=== PATIENT | female | born 1935 | race Caucasian/White ===

== ENCOUNTER → 2024-10-04 08:01 | Outpatient (REF) | payer MEDICARE, OTHER, SELFPAY | LOC: WOUND 08:01 | PROVIDERS: ATTENDING PHYSICIAN Surgery; FAMILY PHYSICIAN Family Medicine | DX: L97.312 Non-pressure chronic ulcer of right ankle with fat layer exposed (principal); C44.712 Basal cell carcinoma of skin of right lower limb, including hip; I87.2 Venous insufficiency (chronic) (peripheral) | CPT/HCPCS: 11042; 99204 ==

== ENCOUNTER → 2024-10-05 08:04 | Outpatient (REF) | payer MEDICARE, OTHER, SELFPAY | LOC: RAD 08:04 | PROVIDERS: ATTENDING PHYSICIAN Surgery; FAMILY PHYSICIAN Family Medicine | DX: I87.2 Venous insufficiency (chronic) (peripheral) (principal); L97.312 Non-pressure chronic ulcer of right ankle with fat layer exposed | CPT/HCPCS: 93971 ==

== ENCOUNTER → 2024-10-12 13:27 | Outpatient (REF) | payer MEDICARE, OTHER, SELFPAY | LOC: WOUND 13:27 | PROVIDERS: ATTENDING PHYSICIAN Surgery; FAMILY PHYSICIAN Family Medicine | DX: L97.312 Non-pressure chronic ulcer of right ankle with fat layer exposed (principal); C44.712 Basal cell carcinoma of skin of right lower limb, including hip; I87.2 Venous insufficiency (chronic) (peripheral) | CPT/HCPCS: 11042 ==

== ENCOUNTER → 2024-10-19 14:54 | Outpatient (REF) | payer MEDICARE, OTHER, SELFPAY | LOC: WOUND 14:54 | PROVIDERS: ATTENDING PHYSICIAN Surgery; FAMILY PHYSICIAN Family Medicine | DX: L97.312 Non-pressure chronic ulcer of right ankle with fat layer exposed (principal); C44.712 Basal cell carcinoma of skin of right lower limb, including hip; I87.2 Venous insufficiency (chronic) (peripheral) | CPT/HCPCS: 11042 ==

== ENCOUNTER → 2024-10-26 14:31 | Outpatient (REF) | payer MEDICARE, OTHER, SELFPAY | LOC: WOUND 14:31 | PROVIDERS: ATTENDING PHYSICIAN Surgery; FAMILY PHYSICIAN Family Medicine | DX: L97.312 Non-pressure chronic ulcer of right ankle with fat layer exposed (principal); C44.712 Basal cell carcinoma of skin of right lower limb, including hip; I87.2 Venous insufficiency (chronic) (peripheral) | CPT/HCPCS: 11042 ==

== ENCOUNTER → 2024-11-23 10:35 | Outpatient (REF) | payer MEDICARE, OTHER, SELFPAY | LOC: WOUND 10:35 | PROVIDERS: ATTENDING PHYSICIAN Surgery | DX: L97.312 Non-pressure chronic ulcer of right ankle with fat layer exposed (principal); C44.712 Basal cell carcinoma of skin of right lower limb, including hip; I87.2 Venous insufficiency (chronic) (peripheral) | CPT/HCPCS: 11042 ==

== ENCOUNTER → 2024-11-30 13:49 | Outpatient (REF) | payer MEDICARE, OTHER, SELFPAY | LOC: WOUND 13:49 | PROVIDERS: ATTENDING PHYSICIAN Surgery; FAMILY PHYSICIAN Family Medicine | DX: L97.312 Non-pressure chronic ulcer of right ankle with fat layer exposed (principal); C44.712 Basal cell carcinoma of skin of right lower limb, including hip; I87.2 Venous insufficiency (chronic) (peripheral) | CPT/HCPCS: 11042 ==

== ENCOUNTER → 2024-12-13 12:28 | Outpatient (REF) | payer MEDICARE, OTHER, SELFPAY | LOC: WOUND 12:28 | PROVIDERS: ATTENDING PHYSICIAN Surgery; FAMILY PHYSICIAN Family Medicine | DX: L97.312 Non-pressure chronic ulcer of right ankle with fat layer exposed (principal); C44.712 Basal cell carcinoma of skin of right lower limb, including hip; I87.2 Venous insufficiency (chronic) (peripheral) | CPT/HCPCS: 11042 ==

== ENCOUNTER → 2024-12-27 14:35 | Outpatient (REF) | payer MEDICARE, OTHER, SELFPAY | LOC: WOUND 14:35 | PROVIDERS: ATTENDING PHYSICIAN Surgery; FAMILY PHYSICIAN Family Medicine | DX: L97.312 Non-pressure chronic ulcer of right ankle with fat layer exposed (principal); C44.712 Basal cell carcinoma of skin of right lower limb, including hip; I87.2 Venous insufficiency (chronic) (peripheral) | CPT/HCPCS: 11042 ==

== ENCOUNTER → 2025-01-10 09:38 | Outpatient (REF) | payer MEDICARE, OTHER, SELFPAY | LOC: WOUND 09:38 | PROVIDERS: ATTENDING PHYSICIAN Surgery; FAMILY PHYSICIAN Family Medicine | DX: L97.312 Non-pressure chronic ulcer of right ankle with fat layer exposed (principal); I87.2 Venous insufficiency (chronic) (peripheral) | CPT/HCPCS: 11042 ==

== ENCOUNTER → 2025-01-27 14:11 | Outpatient (REF) | payer MEDICARE, OTHER, SELFPAY | LOC: WOUND 14:11 | PROVIDERS: ATTENDING PHYSICIAN Surgery; FAMILY PHYSICIAN Family Medicine | DX: L97.312 Non-pressure chronic ulcer of right ankle with fat layer exposed (principal); C44.712 Basal cell carcinoma of skin of right lower limb, including hip; I87.2 Venous insufficiency (chronic) (peripheral) | CPT/HCPCS: 99213 ==

== ENCOUNTER → 2025-02-15 14:39 | Outpatient (REF) | payer MEDICARE, OTHER, SELFPAY | LOC: WOUND 14:39 | PROVIDERS: ATTENDING PHYSICIAN Surgery; FAMILY PHYSICIAN Family Medicine | DX: L97.221 Non-pressure chronic ulcer of left calf limited to breakdown of skin (principal); L97.312 Non-pressure chronic ulcer of right ankle with fat layer exposed; C44.712 Basal cell carcinoma of skin of right lower limb, including hip; I87.2 Venous insufficiency (chronic) (peripheral) | CPT/HCPCS: 99213 ==

== ENCOUNTER → 2025-03-01 14:00 | Outpatient (REF) | payer MEDICARE, OTHER, SELFPAY | LOC: WOUND 14:00 | PROVIDERS: ATTENDING PHYSICIAN Surgery; FAMILY PHYSICIAN Family Medicine | DX: L97.221 Non-pressure chronic ulcer of left calf limited to breakdown of skin (principal); C44.712 Basal cell carcinoma of skin of right lower limb, including hip; I87.2 Venous insufficiency (chronic) (peripheral) | CPT/HCPCS: 97597 ==

== ENCOUNTER → 2025-03-14 09:37 | Outpatient (REF) | payer MEDICARE, OTHER, SELFPAY | LOC: WOUND 09:37 | PROVIDERS: ATTENDING PHYSICIAN Surgery; FAMILY PHYSICIAN Family Medicine | DX: L97.221 Non-pressure chronic ulcer of left calf limited to breakdown of skin (principal); C44.712 Basal cell carcinoma of skin of right lower limb, including hip; I87.2 Venous insufficiency (chronic) (peripheral) | CPT/HCPCS: 99212 ==